=== PATIENT | female | born 1965 | race Caucasian/White ===

== ENCOUNTER 2023-07-27 14:56 | Outpatient (CLI) | payer OTHER ==
[2023-07-27 16:06] LABS: Hemoglobin 14.5 g/dL (12.0-15.5); Mean Corpuscular HGB CONC 33.7 g/dL (32.0-36.0); Mean Corpuscular Hemoglobin 30.4 pg (27.0-33.0); Mean Corpuscular Volume 90.1 fl (81.6-98.3); Mean Platelet Volume 10.6 fl (7.4-10.4); Platelet Count 272 10x3/uL (150-450); RBC Distribution Width 12.6 % (11.5-14.5); Red Blood Cell (RBC) Count 4.77 10x6/uL (3.90-5.03); White Blood Cell (WBC) Count 8.1 10x3/uL (3.5-10.5)
[2023-07-27 16:29] LABS: Anion Gap 15 mmol/L (10-20); BUN (Urea Nitrogen) 25 mg/dL (9.8-20.1); Calc. Creatinine Clearance 0 mL/min (70-130); Calcium 10.5 mg/dL (7.8-10.44); Carbon Dioxide 24 mmol/L (22-29); Chloride 105 mmol/L (98-107); Estimated GFR 72; Glucose 93 mg/dL (70-105); Potassium 4.9 mmol/L (3.5-5.1); Sodium 139 mmol/L (136-145)
== END 2023-07-27 14:57 | disposition home or self-care (01) ==
LOC: CSHLAB 14:56
PROVIDERS: ATTEND Orthopaedic Surgery
DX: Z01.812 Encounter for preprocedural laboratory examination (principal); S83.242A Other tear of medial meniscus, current injury, left knee, initial encounter; M17.12 Unilateral primary osteoarthritis, left knee
CPT/HCPCS: 80048; 82306; 85027

== ENCOUNTER 2023-08-05 10:46 | Day surgery (SDC) | payer OTHER ==
[2023-07-27 15:52] VITALS: BMI 30.2
[2023-08-05] MEDS ORDERED: Ketorolac Tromethamine 30 MG (1 mL) VIAL ONE (11:56)
[2023-08-05] MEDS ORDERED: Gabapentin 300 MG CAP ONE (11:56)
[2023-08-05] MEDS ORDERED: Acetaminophen 325 MG TAB ONE (11:56)
[2023-08-05] MEDS ORDERED: Midazolam HCl 2 mg/2 ml Vial ONE ×2 (12:07)
[2023-08-05] MEDS ORDERED: Ropivacaine 0.5% HCl/PF (150 MG/30 ML VIAL) ONE (12:07)
[2023-08-05] MEDS ORDERED: fentaNYL 50 mcg/mL 1 mL Vial ONE (12:07)
[2023-08-05] MEDS ORDERED: ePHEDrine Sulfate 50 MG/10 ML VIAL ONE (12:24)
[2023-08-05] MEDS ORDERED: Bupivacaine PF 0.5% 30 ML VIAL ONE (12:37)
[2023-08-05] MEDS ORDERED: CEFAZOLIN 2 GM VIAL ONE (12:37)
[2023-08-05] MEDS ORDERED: Tranexamic Acid 1,000 MG/10 ML VIAL ONE (12:37)
[2023-08-05] MEDS ORDERED: Ondansetron PF 4 MG/2 ML Vial ONE (13:02)
[2023-08-05] MEDS ORDERED: PROPOFOL 20 ML ONE (13:02)
[2023-08-05] MEDS ORDERED: Lidocaine 2% PF 5 ML VIAL ONE (13:02)
[2023-08-05] MEDS ORDERED: Dexamethasone 4 mg/ml Vial ONE (13:02)
[2023-08-05] MEDS ORDERED: EPINEPHrine 1 MG/ML AMP ONE (13:25)
== END 2023-08-05 15:40 | disposition home or self-care (01) ==
LOC: CSHSDC 10:46
PROVIDERS: ATTEND Orthopaedic Surgery
PROC: 0SBD4ZZ Excision of Left Knee Joint, Percutaneous Endoscopic Approach (ICD-10-PCS; principal; 2023-08-05)
DX: S83.242A Other tear of medial meniscus, current injury, left knee, initial encounter (principal); S83.282A Other tear of lateral meniscus, current injury, left knee, initial encounter; M17.12 Unilateral primary osteoarthritis, left knee; M93.962 Osteochondropathy, unspecified, left lower leg; M94.262 Chondromalacia, left knee; G40.909 Epilepsy, unspecified, not intractable, without status epilepticus; F32.A Depression, unspecified; G43.909 Migraine, unspecified, not intractable, without status migrainosus; F17.200 Nicotine dependence, unspecified, uncomplicated; Z86.73 Personal history of transient ischemic attack (TIA), and cerebral infarction without residual deficits; Z79.899 Other long term (current) drug therapy; Z88.0 Allergy status to penicillin; X58.XXXA Exposure to other specified factors, initial encounter
CPT/HCPCS: J0171; J0665; J1100; J1885; J2001; J2250; J2405; J2704; J2795; J3010